=== PATIENT | male | born 1975 | race Caucasian/White ===

== ENCOUNTER 2019-02-20 09:56 | Emergency (ER) | payer SELFPAY ==
[~2019-02-20] VITALS: Ht 167.6 cm; Wt 84.1 kg
[2019-02-20 10:07] VITALS: Ht 167.6 cm; Wt 84.1 kg
[2019-02-20] MEDS ORDERED: ULTRAM50 MG PO (10:58)
[2019-02-20] MEDS ORDERED: CLEOCIN HCL300 MG PO (10:58)
[2019-02-20 11:46] VITALS: BP 123/79
== END 2019-02-20 11:48 | disposition home or self-care (01) ==
LOC: D.ER 09:56
DX: L02.413 Cutaneous abscess of right upper limb (principal)

== ENCOUNTER 2019-04-08 11:32 | Emergency (ER) | payer MEDICAID ==
[~2019-04-08] VITALS: Ht 167.6 cm; Wt 77.1 kg
[~2019-04-08 11:32] MED LIST: CLEOCIN HCL300 MG PO; ULTRAM50 MG PO
[2019-04-08 11:35] VITALS: Ht 167.6 cm; Wt 77.1 kg
[2019-04-08 12:43] VITALS: BP 144/100
[2019-04-08 13:03] LABS: BASOPHILS 0.6 % (0-2); EOSINOPHILS 1.4 % (0-7); HEMATOCRIT 37.1 % (42.0-54.0); HEMOGLOBIN 12.6 g/dL (13.5-17.5); IMMATURE GRANULOCYTES 0.2 % (0-5); LYMPHOCYTES 41.4 % (15-50); MCH 29.2 pg (26.0-34.0); MCV 86.1 fL (80.0-100.0); MEAN PLATELET VOLUME 10.2 fL (7.4-10.4); NEUTROPHILS 48.4 % (40-80); PLATELET COUNT 177 10x3/uL (130-400); RBC 4.31 10x6/uL (4.20-6.10); RDW 13.6 % (11.5-14.5); WBC 4.9 10x3/uL (4.8-10.8)
[2019-04-08 13:12] LABS: APTT 30.7 SECONDS (22.8-39.4); INR 1.13 (0.85-1.17)
[2019-04-08 13:18] LABS: ALBUMIN 3.6 g/dL (3.4-5.0); ALKALINE PHOSPHATASE 59 U/L (46-116); ALT (SGPT) 25 U/L (10-68); BILIRUBIN - TOTAL 0.81 mg/dL (0.2-1.3); CALC OSMOLALITY 278 mosm/kg (275-300); CALCIUM 8.4 mg/dL (8.5-10.1); CARBON DIOXIDE 26.3 mmol/L (21.0-32.0); CHLORIDE - SERUM 104 mmol/L (98-107); CREATININE - SERUM 1.1 mg/dL (0.6-1.3); GLUCOSE 98 mg/dL (74-106); PROTEIN - SERUM 6.9 g/dL (6.4-8.2); SODIUM 140 mmol/L (136-145); UREA NITROGEN 12 mg/dL (7-18); eGFR NON AFRICAN AMERICAN 78 mL/min (90-120)
[2019-04-08] MEDS ORDERED: TALWIN NX1 TAB PO (13:34)
[2019-04-08] MEDS ORDERED: CYCLOBENZAPRINE10 MG PO (13:34)
== END 2019-04-08 13:50 | disposition home or self-care (01) ==
LOC: D.ER 11:32
PROVIDERS: Family Medicine
DX: M54.2 Cervicalgia (principal); M54.5 Low back pain; R07.89 Other chest pain; M25.562 Pain in left knee; M25.561 Pain in right knee; S09.90XA Unspecified injury of head, initial encounter; V43.52XA Car driver injured in collision with other type car in traffic accident, initial encounter; Y93.89 Activity, other specified; Y92.410 Unspecified street and highway as the place of occurrence of the external cause

== ENCOUNTER 2019-10-30 10:35 | Emergency (ER) | payer OTHER ==
[~2019-10-30] VITALS: Ht 167.6 cm; Wt 75.0 kg
[~2019-10-30 10:35] MED LIST changes: +CYCLOBENZAPRINE10 MG PO; +TALWIN NX1 TAB PO
[2019-10-30 10:43] VITALS: Ht 167.6 cm; Wt 75.0 kg
[2019-10-30 11:07] LABS: BASOPHILS 1.1 % (0-2); EOSINOPHILS 6.1 % (0-7); HEMATOCRIT 41.1 % (42.0-54.0); HEMOGLOBIN 13.3 g/dL (13.5-17.5); IMMATURE GRANULOCYTES 0.3 % (0-5); LYMPHOCYTES 33.8 % (15-50); MCH 29.2 pg (26.0-34.0); MCHC 32.4 g/dL (31.0-37.0); MCV 90.1 fL (80.0-100.0); MEAN PLATELET VOLUME 9.7 fL (7.4-10.4); MONOCYTES 5.4 % (2-11); NEUTROPHILS 53.3 % (40-80); RBC 4.56 10x6/uL (4.20-6.10); RDW 13.5 % (11.5-14.5); WBC 7.2 10x3/uL (4.8-10.8)
[2019-10-30 11:08] LABS: PLATELET COUNT 233 10x3/uL (130-400)
[2019-10-30 11:24] LABS: CALC OSMOLALITY 280 mosm/kg (275-300); CALCIUM 8.9 mg/dL (8.5-10.1); CARBON DIOXIDE 29.8 mmol/L (21.0-32.0); CHLORIDE - SERUM 106 mmol/L (98-107); CREATININE - SERUM 0.9 mg/dL (0.6-1.3); GLUCOSE 109 mg/dL (74-106); POTASSIUM - SERUM 4.6 mmol/L (3.5-5.1); SODIUM 140 mmol/L (136-145); UREA NITROGEN 15 mg/dL (7-18); eGFR NON AFRICAN AMERICAN > 90 mL/min (90-120)
[2019-10-30 11:32] LABS: ALBUMIN 3.3 g/dL (3.4-5.0); ALKALINE PHOSPHATASE 65 U/L (30-120); ALT (SGPT) 24 U/L (10-68); AMYLASE - SERUM 97 U/L (25-115); BILIRUBIN - TOTAL 0.18 mg/dL (0.2-1.3); LIPASE 265 U/L (73-393); PROTEIN - SERUM 6.7 g/dL (6.4-8.2)
[2019-10-30 11:34] LABS: TROPONIN-I < 0.017 ng/mL (0.000-0.060)
[2019-10-30 11:59] LABS: INR 0.96 (0.85-1.17); PROTIME 12.7 SECONDS (11.6-15.0)
[2019-10-30 12:05] LABS: BILIRUBIN NEGATIVE (NEGATIVE); GLUCOSE NEGATIVE (NEGATIVE); KETONE NEGATIVE (NEGATIVE); NITRITE NEGATIVE (NEGATIVE); UROBILINOGEN NORMAL (NORMAL)
[2019-10-30 13:43] VITALS: BP 122/75
== END 2019-10-30 13:36 | disposition home or self-care (01) ==
LOC: D.ER 10:35
PROVIDERS: Emergency Medicine
DX: R10.31 Right lower quadrant pain (principal); R19.7 Diarrhea, unspecified; I10 Essential (primary) hypertension